=== PATIENT | female | born 1970 | race Caucasian/White ===

== ENCOUNTER → 2016-05-27 | Outpatient (CLI) | payer BC ==
--- NOTE | 2016-05-27 15:33 | MRI ---
HISTORY: Thoracic pain, long-term use of opiates and analgesics, radiculopathy Study: Thoracic spine MRI with and without contrast Comparison: Radiograph 02/08/2016 Technique: Multiplanar multi-sequence MRI of the thoracic spine was obtained with standard [facility] protocol before and after contrast administration. Findings: The thoracic spine demonstrates normal alignment. No abnormal cord or marrow signal identified. The surrounding soft tissues are within normal limits. Vertebral body heights are preserved. The disc s paces are normal. There is no abnormal enhancement. No evidence of epidural abscess. IMPRESSION: 1. Unremarkable MRI of the thoracic spine with and without contrast. Reported By:
== END ==
LOC: RAD 13:25
PROVIDERS: ATTEND Anesthesiology Pain Medicine
DX: Z79.891 Long term (current) use of opiate analgesic (principal); M54.12 Radiculopathy, cervical region; M48.02 Spinal stenosis, cervical region; M47.892 Other spondylosis, cervical region; M54.6 Pain in thoracic spine; Z79.82 Long term (current) use of aspirin
CPT/HCPCS: 72157

== ENCOUNTER → 2017-02-09 | Outpatient (CLI) | payer BC ==
--- NOTE | 2017-02-13 10:51 | MG ---
HISTORY: SCREENING Comparison: 01/13/2016 FINDINGS: Bilateral CC and MLO projections of the right and left breast were obtained. Heterogeneously dense f ibroglandular tissue is seen to be present. No significant architectural distortion, mass or cluster ed microcalcifications can be observed to suggest malignancy. No skin thickening or nipple retractio n is appreciated. No pathological lymphadenopathy can be identified. Benign-appearing calcification s scattered throughout the right and left breasts are observed. IMPRESSION: NO RADIOGRAPHIC EVIDENCE OF MALIGNANCY. ACR CATEGORY 2 - benign findings. FOLLOW-UP EXAM 1 YEAR. Diagnostic CAD was utilized and reviewed. * 0 (ZERO) - ASSESSMENT INCOMPLETE; ADDITIONAL IMAGING IS NEEDED. * 1/1 (ONE) - NEGATIVE. * 2/II (TWO) - BENIGN FINDINGS. * 3/III (THREE) - PROBABLY BENIGN FINDING; SHORT INTERVAL FOLLOW-UP SUGGESTED. * 4/IV (FOUR) - SUSPICIOUS ABNORMALITY; BIOPSY SHOULD BE CONSIDERED. * 5/V - HIGHLY SUSPICIOUS OF MALIGNANCY; BIOPSY SHOULD BE PERFORMED. A NEGATIVE X-RAY REPORT SHOULD NOT DELAY BIOPSY IF A DOMINANT OR CLINICALLY SUSPICIOUS MASS IS PRESENT; 4 TO 8 PERCENT OF CANCERS ARE NOT IDENTIFIED BY X-RAY. A NEGA TIVE REPORT MAY REINFORCE THE CLINICAL IMPRESSION. ADENOSIS AND DENSE BREASTS MAY OBSCURE AN UNDERLY ING NEOPLASM. Reported By:
== END ==
LOC: RAD 09:14
PROVIDERS: ATTEND Nurse Practitioner Family
DX: Z12.31 Encounter for screening mammogram for malignant neoplasm of breast (principal)
CPT/HCPCS: 77067